=== PATIENT | female | born 1950 | race Asian ===

== ENCOUNTER 2016-07-03 15:37 | Emergency (ER) | payer OTHER ==
[~2016-07-03] VITALS: Ht 160 cm; Wt 44.9 kg
[~2016-07-03 15:37] MED LIST: ALPR0.5T96 PO; ASPI325T2 PO; BIOT25007 PO; CA C1TAB83 PO; CARV6.2554 PO; CAT.1 PO; CHOL500013 PO; CIPRO; CYAN100070 PO; GLUC100017 PO; MOTRIN; PERCOCET; UBID60CA6 PO
[2016-07-03 15:46] VITALS: BP 163/107; PULSE 73; RESP 16; TEMP 98.2; O2SAT 98
--- NOTE | 2016-07-03 15:58 | NUR ---
Patient to ER snelling 1 to [facility] for evaluation. Side rails up. Report given to Shira SHEEHAN.
[2016-07-03] MEDS ORDERED: DIPH-TET-PERTUS Vaccine 0.5 ML VIAL (ADACEL) IM ONE (16:00)
--- NOTE | 2016-07-03 16:00 | NUR ---
ER MANAGER ONLINE Maryann at bedside examining patient.
--- NOTE | 2016-07-03 16:01 | NUR ---
Pt brought by self, A&Ox4, pt C/O dog bite ,two bite elvira to left 5th finger, bruising, unable to perform AROM, skin pink and warm, no active bleeding.
[2016-07-03] MEDS: ACETAMINOPHEN 500 MG TABLET PO ONE ×2 (16:10→16:15)
--- NOTE | 2016-07-03 16:40 | NUR ---
Patient given written and verbal discharge instructions and verbalizes understanding. ER MD discussed with patient the results and treatment provided. Given copies of tests performed in ER. Patient in stable condition. ID arm band removed. Rx of Tyelnol given, pt will continue taking Augmentin as previously prescribed. Patient educated on pain management and to follow up with PMD. Pain Scale 0/10. Opportunity for questions provided and answered.
== END 2016-07-03 16:52 | disposition home or self-care (01) ==
LOC: SED 15:37
DX: S61.257A Open bite of left little finger without damage to nail, initial encounter (principal); I10 Essential (primary) hypertension; F41.9 Anxiety disorder, unspecified; Z88.2 Allergy status to sulfonamides; W54.0XXA Bitten by dog, initial encounter; Y93.89 Activity, other specified; Y99.8 Other external cause status; Y92.89 Other specified places as the place of occurrence of the external cause
CPT/HCPCS: 73140-TC; 90715; 99284

== ENCOUNTER 2019-03-03 20:29 | Emergency (ER) | payer OTHER ==
[~2019-03-03] VITALS: Ht 162.6 cm; Wt 45.4 kg
[~2019-03-03 20:29] MED LIST changes: +ALPR0.5T PO; -ALPR0.5T96 PO; +ASPI-858 PO; -ASPI325T2 PO; -BIOT25007 PO; +BIOT25008 PO; -MOTRIN
[2019-03-03 20:40] VITALS: BP_SYST 209
--- NOTE | 2019-03-03 20:40 | NUR ---
patient failed Stroke/TIA bedside swallow screen, due to asymmetrical facial features, facial weakness, and left sided weakness.
--- NOTE | 2019-03-03 20:40 | NUR ---
Placed in room 4 . Placed on diagnostic cardiac sonographer, blood pressure machine and pulse oximeter. To gown for exam. Side rails up. Report given to SISSY Boggs.
--- NOTE | 2019-03-03 21:00 | NUR ---
Per family, pt's slurred speech, L sided weakness and facial droopage is her baseline. Will cont to monitor pt.
--- NOTE | 2019-03-03 21:00 | NUR ---
Pt is a 69 y/o female here for acute onset of gen weakness and dizziness that began today. She states that she felt dizzy while in the bathroom and decided ot lay down. Symptoms persisted which prompted her to come to the ED. Pt has a L side deficit and slurred speech. Pt had two episodes of incontinent urine. No exacerbating or alleivating factors. Otherwise, denies, fever, chills, n/v/d, numbness, tingling, headaches, or other medical complaints.
--- NOTE | 2019-03-03 21:01 | NUR ---
ER Dr. Romero at bedside examining patient.
[2019-03-03] MEDS ORDERED: NACL 0.9% 1,000 ML IV ONE (21:11)
--- NOTE | 2019-03-03 21:28 | NUR ---
Pt went to CT scan via [facility]. Tolerated well. Will cont. to monitor.
[2019-03-03 21:33] LABS: BASOPHILS % (AUTO) 0.9 % (0.0-2.0); EOSINOPHILS # (AUTO) 0.1 K/uL (0.0-0.4); EOSINOPHILS % (AUTO) 2.8 % (0.0-4.0); HEMATOCRIT 41.1 % (36-48); HEMOGLOBIN 13.9 g/dL (12.0-16.0); LYMPHOCYTES # (AUTO) 1.5 K/uL (1.0-5.5); LYMPHOCYTES % (AUTO) 29.5 % (20.5-51.5); MEAN CORPUSCULAR HEMOGLOBIN 35 pg (27-31); MEAN CORPUSCULAR HGB CONC 34 % (32-36); MEAN CORPUSCULAR VOLUME 102 fL (79.0-98.0); MONOCYTES # (AUTO) 0.3 K/uL (0.0-1.0); MONOCYTES % (AUTO) 6.7 % (1.7-9.3); NEUTROPHILS % (AUTO) 60.1 % (40.0-70.0); PLATELET COUNT (AUTO) 205 K/uL (130-430); RED BLOOD CELL COUNT(AUTO) 4.02 MIL/uL (4.2-6.2); RED CELL DISTRIBUTION WIDTH 13.5 % (9.0-15.0); WHITE BLOOD COUNT (AUTO) 5.1 K/uL (4.8-10.8)
--- NOTE | 2019-03-03 21:40 | NUR ---
Pt came back from CT via [facility]. No signs of acute distress or discomfort noted.
[2019-03-03 21:47] LABS: BILIRUBIN,URINE NEGATIVE (NEGATIVE); BLOOD, URINE NEGATIVE (NEGATIVE); CLARITY/URINE CLEAR (CLEAR); GLUCOSE,URINE NEGATIVE (NEGATIVE); KETONES,URINE NEGATIVE (NEGATIVE); LEUKOCYTE ESTERASE ,URINE NEGATIVE (NEGATIVE); NITRITE, URINE NEGATIVE (NEGATIVE); PROTEIN URINE NEGATIVE (NEGATIVE); UROBILINOGEN,URINE 0.2 (0.2-1.0)
[2019-03-03 21:50] LABS: PROTHROMBIN TIME 9.6 SECS (9.5-12.5)
[2019-03-03 21:55] LABS: ALBUMIN 3.9 g/dL (3.4-4.8); CALCIUM 8.9 mg/dL (8.4-11.0); CREATININE 0.96 mg/dL (0.55-1.30); POTASSIUM 3.3 mmol/L (3.5-5.1); TOTAL BILIRUBIN 0.4 mg/dL (0.0-1.0)
[2019-03-03 22:10] LABS: BARBITURATE, URINE NEGATIVE (NEG <=200); BENZODIAZEPINE, URINE NEGATIVE (NEG <=150); CANNABINOID, URINE NEGATIVE (NEG <=50); COCAINE, URINE NEGATIVE (NEG <=150); METHAMPHETAMINES SCREEN,URINE NEGATIVE (NEG <=500); OPIATE, URINE NEGATIVE (NEG <=100); PHENCYCLIDINE SCREEN,URINE NEGATIVE (NEG <=25); UR TRICYCLIC ANTIDEPRESSANTS NEGATIVE (NEG <=300); URINE AMPHETAMINE NEGATIVE (NEG <=500); URINE METHADONE NEGATIVE (NEG <=200); URINE OXYCODONE SCREEN NEGATIVE (NEG <=100); URINE PROPOXYPHENE SCREEN NEGATIVE (NEG <=300)
--- NOTE | 2019-03-03 22:11 | NUR ---
patient was asking if sister Medina is outside. Informed patient that Medina is not outside. Patient unable to get phone number for Medina. Patient did state it is okay to call her daughter, Simi. Called Simi, no response and left a message for her to call back.
--- NOTE | 2019-03-03 22:17 | NUR ---
Dr. Romero speaking with daughter, Simi and updating her on patient's status.
[2019-03-03 22:18] LABS: COLOR,URINE STRAW (YELLOW)
--- NOTE | 2019-03-03 22:31 | NUR ---
Pt's family at bedside
[2019-03-03] MEDS ORDERED: hydrALAZINE HCL 20 MG/ML VIAL IVP ONE (22:45)
--- NOTE | 2019-03-03 23:11 | NUR ---
Patient had an episode of emesis, Dr. Romero aware. Verbal orders received to administer Zofran 4mg IVP. Pt tolerated well. No adverse reaction, will continue to monitor.
[2019-03-03] MEDS ORDERED: ONDANSETRON HCL 4 MG/2 ML VIAL IVP ONE (23:15)
[2019-03-03] MEDS ORDERED: ONDANSETRON HCL 4 MG/2 ML VIAL ONE (23:21)
[2019-03-03 23:25] VITALS: BP_SYST 132
--- NOTE | 2019-03-03 23:25 | NUR ---
Patient to be transferred to [facility]. Is being transferred due to higher level of care. Receiving facility has accepting physician and available space. ER physician has signed transfer form. Patient or responsible green party has agreed to transfer and signed form. Patient belongings inventoried and will be sent with patient. Copy of nursing notes, lab reports, EKG, Physicians Orders and X-rays to be sent with patient. Report called to SISSY Prabhakar at receiving facility. Receiving physician is Dr. Santiago. [facility] ambulance service has been called for transfer. ETA is now.
== END 2019-03-03 23:25 | disposition short-term general hospital (02) ==
LOC: SED 20:29
DX: I61.9 Nontraumatic intracerebral hemorrhage, unspecified (principal); I10 Essential (primary) hypertension; F41.9 Anxiety disorder, unspecified; Z88.2 Allergy status to sulfonamides; Z79.82 Long term (current) use of aspirin; Z79.899 Other long term (current) drug therapy
CPT/HCPCS: 36415; 70450; 71045; 80053; 80307; 81003; 84484; 85025; 85610; 85730; 93005; 96361; 96374; 96375; 99291; G0482; J0360; J2405; J7030